=== PATIENT | female | born 1960 | race Caucasian/White ===

== ENCOUNTER 2016-09-18 12:31 | Emergency (ER) | payer MEDICAID ==
[~2016-09-18] VITALS: Ht 170.2 cm; Wt 80.5 kg
[2016-09-18 12:35] VITALS: BP 149/98
[2016-09-18] MEDS ORDERED: KETOROLAC 30 MG/1 ML IM ONE (13:00)
[2016-09-18] MEDS ORDERED: KETOROLAC 30 MG/1 ML ONE (13:05)
== END 2016-09-18 14:16 | disposition home or self-care (01) ==
LOC: ED 14:10
DX: S60.211A Contusion of right wrist, initial encounter (principal); M19.041 Primary osteoarthritis, right hand; X58.XXXA Exposure to other specified factors, initial encounter; Y93.89 Activity, other specified; Y99.8 Other external cause status; Y92.89 Other specified places as the place of occurrence of the external cause
CPT/HCPCS: 29125

== ENCOUNTER 2017-08-16 23:19 | Emergency (ER) | payer MEDICAID ==
[~2017-08-16] VITALS: Ht 170.2 cm; Wt 80.6 kg
[2017-08-16 23:20] VITALS: BP 181/126
[2017-08-17 00:13] LABS: ALANINE AMINOTRANSFERASE 31 U/L (12-78); ALBUMIN 3.6 g/dL (3.4-5.0); ANION GAP 7 mmol/L (5-15); CALCIUM 8.7 mg/dL (8.5-10.1); CHLORIDE 107 mmol/L (98-107); CREATININE 0.98 mg/dL (0.55-1.02)
[2017-08-17 00:14] LABS: BASOPHILS # (AUTO) 0.04 x10^3/uL (0-0.1); BASOPHILS % (AUTO) 1 % (0-1); EOSINOPHILS # (AUTO) 0.09 x10^3/uL (0-0.4); EOSINOPHILS % (AUTO) 1 % (1-7); LYMPHOCYTES # (AUTO) 1.87 x10^3/uL (1-3.4); LYMPHOCYTES % (AUTO) 27 % (22-44); MD NO; MEAN CORPUSCULAR HEMOGLOBIN 29.5 pg (27.0-34.8); MEAN CORPUSCULAR VOLUME 86.7 fL (80-100); MEAN PLATELET VOLUME 7.5 fL (7.4-10.4); MONOCYTES % (AUTO) 6 % (2-9); NEUTROPHILS # (AUTO) 4.45 x10^3/uL (1.8-6.8); NEUTROPHILS % (AUTO) 65 % (42-75); PLATELET COUNT 311 x10^3/uL (130-400); RED BLOOD COUNT 5.33 x10^6/uL (3.82-5.3); RED CELL DISTRIBUTION WIDTH 13.2 % (9.6-15.2)
[2017-08-17 00:15] LABS: ALKALINE PHOSPHATASE 95 U/L (45-117); BILIRUBIN,TOTAL 0.5 mg/dL (0.2-1.0); TOTAL PROTEIN 7.1 g/dL (6.4-8.2)
[2017-08-17] MEDS ORDERED: DIPH,PERTUSS(ACELL),TET VAC/PF 0.5 ML IM-VACC ONE ×2 (00:24→00:30)
== END 2017-08-17 00:41 | disposition home or self-care (01) ==
LOC: ED 23:59
DX: S61.031A Puncture wound without foreign body of right thumb without damage to nail, initial encounter (principal); W46.0XXA Contact with hypodermic needle, initial encounter; Y93.89 Activity, other specified; Y99.8 Other external cause status; Y92.481 Parking lot as the place of occurrence of the external cause
CPT/HCPCS: 36415; 80053; 85025; 86705; 86706; 86803; 87340; 87806; 90471; 90715; 99284; G0475

== ENCOUNTER 2017-11-23 00:38 | Emergency (ER) | payer MEDICAID ==
[~2017-11-23] VITALS: Ht 170.2 cm; Wt 79.0 kg
[2017-11-23 00:48] VITALS: BP 171/100
== END 2017-11-23 02:43 | disposition home or self-care (01) ==
LOC: ED 00:42
DX: S01.81XA Laceration without foreign body of other part of head, initial encounter (principal); S69.91XA Unspecified injury of right wrist, hand and finger(s), initial encounter; R11.0 Nausea; M54.2 Cervicalgia; M54.9 Dorsalgia, unspecified; Y04.2XXA Assault by strike against or bumped into by another person, initial encounter; Y93.89 Activity, other specified; Y92.89 Other specified places as the place of occurrence of the external cause; Y99.8 Other external cause status
CPT/HCPCS: 70450; 70486; 99284